=== PATIENT | male | born 1960 | race Caucasian/White ===

== ENCOUNTER 2017-01-21 10:33 | Emergency (ER) | payer MEDICAID ==
[~2017-01-21] VITALS: Ht 165.1 cm; Wt 72.6 kg
[2017-01-21 10:37] VITALS: BP 140/80; PULSE 97; RESP 16; TEMP 98.5; O2SAT 97
[2017-01-21] MEDS ORDERED: LORazepam 2 MG/ML VIAL IV PUSH ONE ×2 (11:30→13:30)
--- NOTE | 2017-01-21 11:43 | PD ---
HPI Chief Complaint: Suicide Ideation/Attempt Time Seen by Provider: 11:32 Travel History International Travel<30 days: No Contact w/Intl Traveler<30days: No Traveled to known affect area: No History of Present Illness HPI 56-year-old male that presents to the ED for evaluation of psychiatric evaluation. Patient comes here voluntarily. Patient reports having a history of anxiety, depression, bipolar disorder and has been off his medications for almost a month now. Patient recently moved from [place] patient states that he had Medicaid from that state and when he came here he did not realize that the insurance wouldn't work here. The patient has been off his medications for almost 20 days. The patient has been feeling more depressed and suicidal. He has not been able to take any medications other than the patient something that he can get from his friends or family members. Per patient he has a history of neck fracture with surgery but no current injury. Patient does have sunburn on his legs and arms as well as his back that is recent from going to the beach recently. He states that he has 7 out of 10 pain in the neck as well as 3 out of 10 pain on his skin from sunburn. He denies any other medical problem. He denies any IV drugs. He denies any other medical problems. Patient states that his symptoms are severe. Patient on examination has a slight tremor likely from withdrawal. Patient states that this is been ongoing for the last 20 days. During trying to go to different places in the area with no luck until they went to [facility] today and they sent him here to get evaluated and possibly admitted for stabilization. Denies any homicidal ideation. No hallucinations. Per patient he is to take Seroquel, Paxil, Xanax, gabapentin. PFSH Past Medical History Cardiovascular Problems: Yes High Cholesterol: Yes GERD: Yes Hypertension: Yes Musculoskeletal: Yes (broke neck & back "years ago") Tetanus Vaccination: Unknown Social History Alcohol Use: Yes (occasionally) Tobacco Use: No Substance Use: No Allergies-Medications (Allergen,Severity, Reaction): Coded Allergies: No Known Allergies (Unverified , 01/21/17) Review of Systems Except as stated in HPI: all other systems reviewed are Neg Physical Exam Narrative GENERAL: SKIN: Warm and dry. Patient has a first-degree sunburn on the legs and arms as well as the back. Slightly tender to touch. More noticeable on the legs. Minimal edema noted. No blistering. HEAD: Atraumatic. Normocephalic. EYES: Pupils equal and round. No scleral icterus. No injection or drainage. ENT: No nasal bleeding or discharge. Mucous membranes pink and moist. NECK: Trachea midline. No JVD. CARDIOVASCULAR: Regular rate and rhythm. No murmurs, S3, S4. RESPIRATORY: No accessory muscle use. Clear to auscultation. Breath sounds equal bilaterally. GASTROINTESTINAL: Abdomen soft, non-tender, nondistended. Hepatic and splenic margins not palpable. MUSCULOSKELETAL: Extremities without clubbing, cyanosis, or edema. No obvious deformities. Full range of motion of the upper and lower extremities bilaterally. Pupils pulses bilaterally. NEUROLOGICAL: Awake and alert. No obvious cranial nerve deficits. Motor grossly within normal limits. Five out of 5 muscle strength in the arms and legs. Normal speech. Patient has a slight tremor on the upper extremities as well as the neck. No obvious sign of neurological deficits. PSYCHIATRIC: Anxious and depressed mood and affect; insight and judgment normal. Data Data Last Documented VS Vital Signs Date Time Temp Pulse Resp B/P Pulse Ox O2 Delivery O2 Flow Rate FiO2 01/21/17 11:03 97 Nasal Cannula 01/21/17 10:37 98.5 97 16 140/80 Orders Complete Blood Count With Diff (01/21/17 11:18) Comprehensive Metabolic Panel (01/21/17 11:18) Iv Access Insert/Monitor (01/21/17 11:18) Valproic Acid (Depakene) (01/21/17 11:18) Psych Screen (01/21/17 11:18) Drug Screen, Random Urine (01/21/17 11:18) Alcohol (Ethanol) (01/21/17 11:18) Lorazepam Inj (Ativan Inj) (01/21/17 11:30) Labs Laboratory Tests Test 01/21/17 01/21/17 11:35 12:05 White Blood Count 9.5 TH/MM3 Red Blood Count 4.67 MIL/MM3 Hemoglobin 16.0 GM/DL Hematocrit 46.1 % Mean Corpuscular Volume 98.9 FL Mean Corpuscular Hemoglobin 34.2 PG Mean Corpuscular Hemoglobin 34.6 % Concent Red Cell Distribution Width 13.5 % Platelet Count 176 TH/MM3 Mean Platelet Volume 8.9 FL Neutrophils (%) (Auto) 65.8 % Lymphocytes (%) (Auto) 25.2 % Monocytes (%) (Auto) 7.3 % Eosinophils (%) (Auto) 1.2 % Basophils (%) (Auto) 0.5 % Neutrophils # (Auto) 6.2 TH/MM3 Lymphocytes # (Auto) 2.4 TH/MM3 Monocytes # (Auto) 0.7 TH/MM3 Eosinophils # (Auto) 0.1 TH/MM3 Basophils # (Auto) 0.0 TH/MM3 CBC Comment DIFF FINAL Differential Comment Sodium Level 139 MEQ/L Potassium Level 3.8 MEQ/L Chloride Level 102 MEQ/L Carbon Dioxide Level 30.1 MEQ/L Anion Gap 7 MEQ/L Blood Urea Nitrogen 6 MG/DL Creatinine 1.05 MG/DL Estimat Glomerular Filtration 73 ML/MIN Rate Random Glucose 124 MG/DL Calcium Level 9.6 MG/DL Total Bilirubin 0.6 MG/DL Aspartate Amino Transf 21 U/L (AST/SGOT) Alanine Aminotransferase 31 U/L (ALT/SGPT) Alkaline Phosphatase 57 U/L Total Protein 7.5 GM/DL Albumin 3.7 GM/DL Valproic Acid (Depakene) Level 4 MCG/ML Ethyl Alcohol Level LESS THAN 3 MG/DL Urine Opiates Screen NEG Urine Barbiturates Screen NEG Urine Amphetamines Screen NEG Urine Benzodiazepines Screen NEG Urine Cocaine Screen POS Urine Cannabinoids Screen NEG MDM Medical Decision Making Medical Screen Exam Complete: Yes Emergency Medical Condition: Yes Medical Record Reviewed: Yes Interpretation(s) CBC & BMP Diagram 01/21/17 11:35 LFts WNL tox screen positive for cocaine Differential Diagnosis Depression versus suicidal ideation versus anxiety versus adjustment disorder versus mood disorder versus bipolar disorder versus schizophrenia versus paranoid disorder versus psychosis versus substance abuse versus alcohol abuse versus alcohol induced psychosis versus homicidality addition versus cutting versus personality disorder Narrative Course 56-year-old male that presents to the ED for evaluation of psych. Patient was properly examined and was found to have signs and symptoms consistent with appears to be psychiatric illness. No sign of acute medical distress. Patient does have a sunburn but no sign of infection. At this time I recommend labs and psychiatric evaluation. Patient is agreeable with this plan. Patient was given Ativan to help with his shakes and his anxiety. Patient will be medically clear. Okay to be seen by psych. Mental health screening was discussed with the patient. Diagnosis Primary Impression: Bipolar disorder Qualified Code: F31.32 - Bipolar affective disorder, currently depressed, moderate Americo Nair Jan 21, 2017 11:43
[2017-01-21 12:04] LABS: AUTOMATED NEUTROPHIL # 6.2 TH/MM3 (1.8-7.7); BASOPHIL % 0.5 % (0.0-2.0); EOSINOPHIL # 0.1 TH/MM3 (0-0.4); EOSINOPHIL % 1.2 % (0.0-4.0); HEMATOCRIT 46.1 % (39.0-51.0); HEMO FLAGS DIFF FINAL; LYMPH % 25.2 % (9.0-44.0); LYMPHOCYTE # 2.4 TH/MM3 (1.0-4.8); MEAN CELL VOLUME 98.9 FL (80.0-100.0); MEAN CORPUSCULAR HEMOGLOBIN 34.2 PG (27.0-34.0); MEAN CORPUSCULAR HGB CONC 34.6 % (32.0-36.0); MONO % 7.3 % (0.0-8.0); NEUT % 65.8 % (16.0-70.0); PLATELET COUNT 176 TH/MM3 (150-450); RED BLOOD COUNT 4.67 MIL/MM3 (4.50-5.90); RED CELL DISTRIBUTION WIDTH 13.5 % (11.6-17.2); WHITE BLOOD COUNT 9.5 TH/MM3 (4.0-11.0)
[2017-01-21 12:21] LABS: ANION GAP 7 MEQ/L (5-15); AST (GOT) 21 U/L (15-37); BICARBONATE 30.1 MEQ/L (21.0-32.0); BLOOD UREA NITROGEN 6 MG/DL (7-18); CHLORIDE 102 MEQ/L (98-107); GLOMERULAR FILTRATION RATE 73 ML/MIN (>89); SODIUM (NA) 139 MEQ/L (136-145)
[2017-01-21 12:22] LABS: POTASSIUM 3.8 MEQ/L (3.5-5.1)
[2017-01-21 12:24] LABS: ALKALINE PHOSPHATASE 57 U/L (45-117); ALT (GPT) 31 U/L (12-78); TOTAL BILIRUBIN ADULT 0.6 MG/DL (0.2-1.0)
[2017-01-21 12:31] LABS: AMPHETAMINE, URINE NEG (NEG); BARBITURATES, URINE NEG (NEG); COCAINE, URINE POS (NEG)
[2017-01-21 18:28] VITALS: BP 113/70; PULSE 92; RESP 20; TEMP 99.4; O2SAT 99
[2017-01-21 22:53] VITALS: RESP 19
[2017-01-22] MEDS ORDERED: diphenhydrAMINE HCL 50 MG CAP PO PRN (01:15)
[2017-01-22] MEDS ORDERED: HYDROCORTISONE 0.5% CREAM 30 GM TOPICAL PRN (01:15)
[2017-01-22 02:26] VITALS: BP 119/58; PULSE 78; RESP 17; O2SAT 99
[2017-01-22 06:00] VITALS: BP 122/63; PULSE 80; RESP 18; O2SAT 99
[2017-01-22] MEDS ORDERED: SERO50TA PO (08:50)
[2017-01-22] MEDS ORDERED: PAXI20TA PO (08:50)
--- NOTE | 2017-01-22 09:38 | MB ---
cc: DARRIN LEAL DATE OF CONSULTATION: 01/22/2017 PHYSICIAN REQUESTING CONSULTATION Emergency Department REASON FOR CONSULTATION Psychiatric evaluation. HISTORY OF PRESENT ILLNESS Mr. Calhoun is a 56-year-old male with a reported history of bipolar disorder and anxiety who presents on a voluntary basis for what sounds like primarily a medication refill. He is apparently a relatively recent transplant from [place] and has been unable to get prescriptions for his medications since he has been down here. It appears in reviewing the ED provider's note that the patient tried to go to [facility]. Reviewing the electronic medical record, I note that this is the patient's first visit to [place]. The patient is seen and examined. Chart reviewed. Case discussed with nurse in the [facility]. There has been no evidence of any suicidal or homicidal behavior while under observation in the [facility]. The patient has been no behavioral problem. On my examination today, the patient reports that he came down from [place] approximately three weeks ago and has been out of his medications over that time. He says that he came down to stay with his sister. Mood is described as somewhat anxious. He denies any suicidal or homicidal ideation, intent or plan on direct questioning. No depressive or hypomanic / manic symptoms noted. He denies any audiovisual hallucinations and I can elicit no delusional beliefs. He admits that he has been abusing some of his friend's Klonopin on account of his anxiety, reportedly also smoking some cannabis. The remainder of the psychiatric ROS is negative. The patient is requesting refills of his psychotropic medications and is requesting to be discharged from the psychiatric emergency room this morning. PAST PSYCHIATRIC HISTORY Includes a reported history of bipolar disorder and anxiety. The patient reports that he has not seen his psychiatrist, who is based in [place], for a month or so. His last psychiatric admission was two or three years ago. He says he has one prior suicide attempt 20 years ago in which he cut his neck. The patient reports that his outpatient medication regimen includes the following: Seroquel 50 mg in the morning, 50 mg at midday, and 100 mg at bedtime, Paxil 20 mg twice daily and Xanax as needed. FAMILY HISTORY The patient reports that his brother Karan completed suicide. He denies any other family psychiatric history. He is unsure of Karan's diagnosis. SOCIAL HISTORY The patient is from [place]. He is moving in with his sister. He is from his and has no children. He denies any or legal history. He has a 7th grade education and is presently disabled. Denies any access to guns or firearms. He belongs to the [employer]. PAST MEDICAL HISTORY Includes a history of neck fracture and chronic pain. REVIEW OF SYSTEMS No reported headache, vision or hearing changes, chest pain, shortness of breath, bowel or bladder issues. No other physical complaints. PHYSICAL EXAMINATION Temperature 99.4, pulse 80, respirations 18, blood pressure 122/63, pulse oximetry 99% on room air. Physical examination completed by the ED provider. On my examination today, the patient appears extremely sunburned but otherwise well-nourished and well-developed and in no acute physical distress. He says that his sister took him to the beach and he forgot to put on sunscreen. The patient is a little fidgety but no other motoric abnormalities noted. LABORATORY Laboratory is reviewed: CBC is unremarkable. CMP is significant for mildly decreased GFR at 73 and mildly elevated glucose at 124 in a nonfasting sample. Toxicology is positive for cocaine and alcohol level is undetectable. Depakote level is undetectable, but the patient does not report that this is one of his medications to me. MENTAL STATUS EXAMINATION The patient is in a hospital gown. He is well-groomed. He is awake, alert and oriented x3. No motor abnormalities noted except the patient is somewhat fidgety. Speech is within normal limits for rate, tone and volume. Language and fund of knowledge seem average. Mood is anxious and affect is reactive and consistent with stated mood. Thought process linear. No loosening of associations. No evident delusions. Denies audiovisual hallucinations. Denies suicidal or homicidal ideation. Insight and judgment are fair. ASSESSMENT AND PLAN 1. Anxiety disorder, F41.9. 2. Polysubstance abuse, F19.10. This is a 56-year-old male with psychiatric history as detailed above who presents on a voluntary basis to the ED. On my examination today, I can detect no unstable mood or psychotic disorder in this patient at this time. He is somewhat anxious, but not severely so. He denies any suicidal or homicidal ideation. He appears to be attending to his basic needs. Putting all this information together, I sawsmith the patient does not meet [facility] criteria at this time nor does he require inpatient psychiatric stabilization. He is requesting a refill of his psychotropic medications. I will provide him with a three-day supply with one refill of his reported dose of Seroquel and Paxil. I have declined to provide him with a refill of his Xanax as he reports that he was abusing benzodiazepines from his friends, which I have told him not to do, and in any event he will not be able to obtain these from [facility] going forward when he follows up. I have instructed the patient to follow-up for outpatient psychiatric care at [facility] and for further refills of medications. I have counseled the patient to abstain from abusing substances. I have counseled the patient regarding warning signs for need to return to the psychiatric emergency room as part of a general safety plan. The patient is otherwise psychiatrically clear for discharge from the ED. Thank you very much for this consultation. Darrin CAMARILLO /8:54 AM /9:20 AM [facility]
== END 2017-01-22 09:54 | disposition home or self-care (01) ==
LOC: NEPC 10:33 → NEPJ 01-22 09:54
DX: F31.32 Bipolar disorder, current episode depressed, moderate (principal)
CPT/HCPCS: 80053; 80164; 80307; 85025; 96374; 99283; J2060; Q0163